=== PATIENT | female | born 2000 | race Caucasian/White ===

== ENCOUNTER 2021-04-17 15:19 | Emergency (ER) | payer OTHER ==
[~2021-04-17] VITALS: Ht 165.1 cm; Wt 79.4 kg
[2021-04-17 15:29] VITALS: BP_SYST 145
[2021-04-17] MEDS ORDERED: ACET-2634 PO (17:08)
[2021-04-17] MEDS ORDERED: IBUP-1969 PO (17:08)
[2021-04-17 17:40] VITALS: BP_SYST 145
== END 2021-04-17 17:40 | disposition home or self-care (01) ==
LOC: SED 15:19
DX: M25.512 Pain in left shoulder (principal); Z79.899 Other long term (current) drug therapy
CPT/HCPCS: 73030; 99283